=== PATIENT | female | born 1960 | race Caucasian/White ===

== ENCOUNTER → 2018-03-09 | Outpatient (CLI) | payer OTHER, BC ==
[~2018-03-09] VITALS: Ht 154.9 cm; Wt 91.6 kg
[~2018-03-09] MED LIST: ASCORBIC ACID250 MG PO; CRESTOR40 MG PO; FISH OIL 1,2001 EAC3 PO; FLOVENT 11120 INHALA IH; GLUCOTROL XL5 MG PO; LO-DOSE ASPIRIN81 M2 PO; METFORMIN HCL750 MG PO; OMEPRAZOLE40 M1 PO; TRIUMEQ TABLET1 EACH PO; TRULICITY1.5 MG/0.5 SC; VENTOLIN HFA18 GM IH; VITAMIN B-1000 MCG/1 PO; VITAMIN D10000 UNIT PO; VITAMIN E400 UNI6 PO; WELLBUTRIN SR200 MG PO; WELLBUTRIN100 MG PO; ZESTRIL2.5 MG PO; ZOLOFT100 MG PO
== END | disposition home or self-care (01) ==
LOC: AMB 08:01
PROVIDERS: Internal Medicine
DX: Z12.11 Encounter for screening for malignant neoplasm of colon (principal); D12.3 Benign neoplasm of transverse colon; D12.2 Benign neoplasm of ascending colon; D12.4 Benign neoplasm of descending colon; K57.30 Diverticulosis of large intestine without perforation or abscess without bleeding; K64.8 Other hemorrhoids; J45.909 Unspecified asthma, uncomplicated; E11.40 Type 2 diabetes mellitus with diabetic neuropathy, unspecified; E11.319 Type 2 diabetes mellitus with unspecified diabetic retinopathy without macular edema; E11.65 Type 2 diabetes mellitus with hyperglycemia; K21.9 Gastro-esophageal reflux disease without esophagitis; R74.8 Abnormal levels of other serum enzymes; E78.1 Pure hyperglyceridemia; E83.52 Hypercalcemia; E21.1 Secondary hyperparathyroidism, not elsewhere classified; F17.200 Nicotine dependence, unspecified, uncomplicated; E55.9 Vitamin D deficiency, unspecified; Z82.49 Family history of ischemic heart disease and other diseases of the circulatory system; Z83.3 Family history of diabetes mellitus; Z81.8 Family history of other mental and behavioral disorders; Z83.49 Family history of other endocrine, nutritional and metabolic diseases; Z90.710 Acquired absence of both cervix and uterus; Z88.8 Allergy status to other drugs, medicaments and biological substances
CPT/HCPCS: 82948; 88305; 93005